=== PATIENT | male | born 1960 | race Caucasian/White ===

== ENCOUNTER → 2016-08-06 | Day surgery (SDC) | payer OTHER ==
[2016-08-06 08:07] LABS: HCT 47.7 % (42.0-52.0); MCH 30.3 pg (25.0-31.0); MCHC 33.5 g/dL (32.0-36.0); MCV 90.3 fL (78.0-100.0); MPV 9.8 fL (6.0-9.5); RBC 5.28 M/uL (4.70-6.00); RDW 14.5 % (11.5-14.0); WBC 9.9 K/uL (4.0-10.5)
[2016-08-06 08:25] LABS: ALBUMIN 4.6 g/dL (3.5-5.0); BILIRUBIN - TOTAL 0.5 mg/dL (0.1-1.0); CREATININE 1.2 mg/dL (0.7-1.2); GLOBULIN (CALCULATION) 2.8 g/dL (2.2-4.2); POTASSIUM 4.4 mmol/L (3.5-5.1); TOTAL PROTEIN 7.4 g/dL (6.4-8.3)
== END | disposition home or self-care (01) ==
LOC: FAS 07:36
PROVIDERS: Surgery
DX: Z12.11 Encounter for screening for malignant neoplasm of colon (principal); K21.9 Gastro-esophageal reflux disease without esophagitis; G20 Parkinson's disease; F41.9 Anxiety disorder, unspecified; F32.9 Major depressive disorder, single episode, unspecified; Z87.442 Personal history of urinary calculi; Z87.891 Personal history of nicotine dependence; Z90.89 Acquired absence of other organs; Z79.82 Long term (current) use of aspirin; Z79.899 Other long term (current) drug therapy
CPT/HCPCS: 36415; 80053; J2704

== ENCOUNTER 2020-05-29 13:09 | Emergency (ER) | payer OTHER, MEDICARE | END 2020-05-29 15:55 | disposition left against medical advice (07) | LOC: FER 13:09 | DX: R51.9 Headache, unspecified (principal); Z53.8 Procedure and treatment not carried out for other reasons ==